=== PATIENT | male | born 1945 | race Caucasian/White ===

== ENCOUNTER 2017-10-05 05:41 | Day surgery (SDC) | payer MEDICARE, BC ==
[2017-10-05] MEDS ORDERED: fentaNYL 100 MCG/2 ML SDV IV ONE ×3 (05:42→06:33)
[2017-10-05] MEDS ORDERED: Midazolam 1 MG/ML 2 ML SDV IV ONE ×5 (05:42→06:39)
[2017-10-05] MEDS ORDERED: Dextrose 5%-0.45% NaCl 1,000 ML IV SCH (06:00)
[2017-10-05] MEDS ORDERED: Sodium Chloride 0.9% 10 ML Syringe FLUSH PRN (06:00)
[2017-10-05] MEDS ORDERED: fentaNYL 100 MCG/2 ML SDV ONE (06:15)
[2017-10-05] MEDS ORDERED: Midazolam 1 MG/ML 2 ML SDV ONE (06:15)
--- NOTE | 2017-10-05 07:35 | OR ---
DATE: 10/05/2017 PROCEDURES PERFORMED: Total colonoscopy, NBI, and multiple cold snare polypectomies. INSTRUMENT USED: CF-H180AL Olympus video colonoscope. Olympus disposable detachable device. PREMEDICATIONS: Fentanyl 100 mcg intravenous, Versed 3 mg intravenous. Nasal O2 cannula. The procedure was done under pulse oximetry, BP recording, and monitoring engineer. INDICATIONS: The patient with recent rectal bleeding and left-sided lower abdominal pain. Colonoscopic examination is done for detection of any polypoid lesions and removal, endoscopic hemostasis therapy if needed. DESCRIPTION OF PROCEDURE: Initial rectal exam was unremarkable. Rigid anoscopy showed small internal hemorrhoids without bleeding from them. The colonoscope was passed with ease. Scattered diverticula were noted in the distal left colon along with some deformity. There was some amount of liquid fecal material that had to be aspirated. The scope was passed with ease up to the ileocecal area, photographs were taken of the normal-appearing cecum, identified by landmarks of appendiceal orifice and double-bulged ileocecal folds. No bleeding was noted from any of the visualized areas at the commencement of the examination. No stricture. No vascular ectasia. No large or isolated ulcerations seen. No evidence of diffuse inflammatory bowel disease in the form of friability, contact bleeding, or ulcerations. Probing the proximal sides of folds and flexures, using adequate distention and clearing up the stool material, withdrawal of the scope was made, 5 mm sized benign-appearing polyps were noted in the mid ascending colon and distal transverse colon. NBI views were obtained of the ascending colon polyp. Photographs were taken. Cold snare polypectomy was done of the ascending colon polyp as well as the transverse colon polyp. The tissues were collected and sent for histopathology. No bleeding was noted from any of the visualized areas at the completion of examination. IMPRESSION: 1. Internal hemorrhoids. 2. Diverticulosis. 3. Colonic polyps. The patient tolerated the procedure well. [facility] /[id number]
[2017-10-05 10:44] VITALS: BP 143/79
--- NOTE | 2017-10-06 14:19 | EKG ---
10/05/2017 - TITUS CABRERA - TIME: 7:19 a.m. FINDINGS: Atrial fibrillation, ventricular rate ranging from 75 to 109 with multiple premature complexes. [facility] /[id number]
== END 2017-10-05 08:40 | disposition home or self-care (01) ==
LOC: DL.ENDO 05:41
PROVIDERS: ATTEND Internal Medicine Gastroenterology
DX: D12.2 Benign neoplasm of ascending colon (principal); D12.3 Benign neoplasm of transverse colon; K57.30 Diverticulosis of large intestine without perforation or abscess without bleeding; K64.8 Other hemorrhoids; K62.5 Hemorrhage of anus and rectum; R10.32 Left lower quadrant pain
CPT/HCPCS: 45385; 93005; 93010; J2250; J3010; J7042

== ENCOUNTER 2024-10-24 06:04 | Day surgery (SDC) | payer MEDICARE, BC ==
[~2024-10-24 06:04] MED LIST: Propofol 200 MG/20 ML SDV ONE
[2024-10-24] MEDS ORDERED: Propofol 200 MG/20 ML SDV IV ONE (06:05)
[2024-10-24] MEDS ORDERED: Lactated Ringers 1,000 ML IV ONE (06:05)
[2024-10-24] MEDS ORDERED: Lidocaine 2% 20 ML MDV NERVRT ONE (06:05)
[2024-10-24] MEDS: Lactated Ringers 1,000 ML IV SCH (06:20)
[2024-10-24 08:44] VITALS: BP 133/80; PULSE 64
== END 2024-10-24 08:20 | disposition home or self-care (01) ==
LOC: DL.ENDO 06:04
PROVIDERS: ATTEND Internal Medicine Gastroenterology
DX: Z12.11 Encounter for screening for malignant neoplasm of colon (principal); D12.5 Benign neoplasm of sigmoid colon; K64.8 Other hemorrhoids; K57.30 Diverticulosis of large intestine without perforation or abscess without bleeding; E11.9 Type 2 diabetes mellitus without complications; E66.01 Morbid (severe) obesity due to excess calories; Z79.01 Long term (current) use of anticoagulants; Z68.36 Body mass index [BMI] 36.0-36.9, adult; Z79.899 Other long term (current) drug therapy; Z86.0101 Personal history of adenomatous and serrated colon polyps
CPT/HCPCS: 45385; J2003; J2704; J7120; 00811; 88305; 99100